=== PATIENT | female | born 1995 | race Caucasian/White ===

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

== ENCOUNTER 2017-02-22 18:43 | Emergency (ER) | payer BC ==
[2017-02-22 19:07] VITALS: BP 127/83
[2017-02-22] MEDS ORDERED: Ondansetron 4 MG/2 ML SDV IVPUSH ONE (19:20)
[2017-02-22] MEDS ORDERED: Sodium Chloride 0.9% 1,000 ML IV SCH (19:30)
--- NOTE | 2017-02-22 19:32 | EDM.PDOC ---
ED HPI GENERAL MEDICAL PROBLEM - General Chief Complaint: Abdominal Pain Stated Complaint: LOWER ABDOMINAL PAIN Time Seen by Provider: 02/22/17 19:08 Source of Information: Reports: Patient, RN Notes Reviewed History Limitations: Reports: No Limitations - History of Present Illness INITIAL COMMENTS - FREE TEXT/NARRATIVE: The patient states that she developed periumbilical abdominal pain this past Sunday morning, 02/20/2017. The pain then began to migrate to her right lower quadrant yesterday, and settled in her right lower quadrant today. It is stabbing and pressing in character. The pain is always present, but made worse with virtually any movement. She has had nausea, but no emesis. She has been constipated since 02/20/2017. No recent diarrhea. No recent fever. She reports urinary frequency, but no dysuria. No prior similar symptoms. The patient's LMP was 02/02/2017. Her last oral solid intake was at 17:00 this evening. Her last oral liquid intake was at 17:00 this evening. The patient does not have a PCP. Her Neurologist is at [facility]. Right Lower Abdomen Pain Score (Numeric/FACES): 7 - Related Data Allergies Allergy/AdvReac Type Severity Reaction Status Date / Time No Known Allergies Allergy Verified 11/15/16 21:40 Home Meds: Home Meds Riboflavin [Vitamin B-2] 25 mg PO DAILY 10/06/15 [History] levETIRAcetam [Keppra] 2,000 mg PO BID 10/06/15 [History] Magnesium 100 mg PO BID 11/15/16 [History] Past Medical History Neurological History: Reports: Migraines, Seizure - Past Surgical History HEENT Surgical History: Reports: Oral Surgery ([place] teeth extraction) Oncologic Surgical History: Reports: Other (See Below) (Right axillary lymph node biopsy - benign) Social & Family History - Tobacco Use Smoking Status *Q: Never Smoker Second Hand Smoke Exposure: No - Caffeine Use Caffeine Use: Reports: Coffee - Alcohol Use Alcohol Use History: Yes Alcohol Use Frequency: Socially - Recreational Drug Use Recreational Drug Use: No - Living Situation & Occupation Living situation: Reports: Single, with Family Occupation: Student ([employer]) ED ROS GENERAL - Review of Systems Review Of Systems: See Below Constitutional: Reports: No Symptoms HEENT: Reports: No Symptoms Respiratory: Reports: No Symptoms Cardiovascular: Reports: No Symptoms Endocrine: Reports: No Symptoms GI/Abdominal: Reports: No Symptoms : Reports: No Symptoms Musculoskeletal: Reports: No Symptoms Skin: Reports: No Symptoms Neurological: Reports: No Symptoms Psychiatric: Reports: No Symptoms Hematologic/Lymphatic: Reports: No Symptoms Immunologic: Reports: No Symptoms ED EXAM, GI/ABD - Physical Exam Exam: See Below Exam Limited By: No Limitations General Appearance: Alert, WD/WN, No Apparent Distress Eyes: Bilateral: Normal Appearance, EOMI Ears: Normal External Exam, Hearing Grossly Normal Nose: Normal Inspection, No Blood Throat/Mouth: Normal Inspection, Normal Lips, Normal Voice, No Airway Compromise Head: Atraumatic, Normocephalic Neck: Normal Inspection, Full Range of Motion Respiratory/Chest: No Respiratory Distress, Lungs Clear, Normal Breath Sounds, No Accessory Muscle Use Cardiovascular: Normal Peripheral Pulses, Regular Rate, Rhythm, No Gallop, No JVD, No Murmur, No Rub GI/Abdominal Exam: Soft, No Organomegaly, No Distention, No Abnormal Bruit, No Mass, Pelvis Stable, Tender (Right lower quadrant only. Rovsing sign positive. Obturator sign positive. Psoas sign positive. Heel drop sign positive.), Abnormal Bowel Sounds (rare). No: Rebound (Female) Exam: Deferred Rectal (Female) Exam: Deferred Back Exam: Normal Inspection, Full Range of Motion. No: CVA Tenderness (L), CVA Tenderness (R) Extremities: Normal Inspection, Normal Range of Motion, No Pedal Edema, Normal Capillary Refill Neurological: Alert, Oriented, Normal Cognition, No Motor/Sensory Deficits Psychiatric: Normal Affect Skin Exam: Warm, Dry, Intact, Normal Color, No Rash Course - Vital Signs Last Recorded V/S: Last Vital Signs Temp 36.2 C 02/22/17 19:05 Pulse 73 02/22/17 19:05 Resp 20 02/22/17 19:05 BP 127/83 02/22/17 19:05 Pulse Ox 100 02/22/17 19:05 - Orders/Labs/Meds Orders: Active Orders 24 hr Category Date Time Status Abdomen Pelvis w Cont [CT] Stat Exams 02/22/17 19:20 Taken Transvaginal Non OB [US] Stat Exams 02/22/17 21:21 Ordered Sodium Chloride 0.9% [Normal Saline] 1,000 ml Med 02/22/17 19:30 Active IV ASDIRECTED Sodium Chloride 0.9% [Saline Flush] Med 02/22/17 20:38 Active 10 ml FLUSH ONETIME PRN Medication Orders Sodium Chloride (Normal Saline) 1,000 mls @ 150 mls/hr IV ASDIRECTED COURTNEY Last Admin: 02/22/17 19:29 Dose: 150 mls/hr Sodium Chloride (Saline Flush) 10 ml FLUSH ONETIME PRN PRN Reason: IV FLUSH Last Admin: 02/22/17 20:53 Dose: 10 ml Labs: Laboratory Tests 02/22/17 02/22/17 02/22/17 Range/Units 19:18 19:18 20:14 WBC 9.58 (3.98-10.04) K/mm3 RBC 5.10 (3.98-5.22) M/mm3 Hgb 13.4 (11.2-15.7) gm/L Hct 41.1 (34.1-44.9) % MCV 80.6 (79.4-94.8) fl MCH 26.3 (25.6-32.2) pg MCHC 32.6 (32.2-35.5) g/dl RDW Std Deviation 38.1 (36.4-46.3) fL Plt Count 298 (182-369) K/mm3 MPV 9.2 L (9.4-12.3) fl Neutrophils % (Manual) 56 (40-60) % Band Neutrophils % 0 (0-10) % Lymphocytes % (Manual) 42 H (20-40) % Atypical Lymphs % 0 % Monocytes % (Manual) 1 L (2-10) % Eosinophils % (Manual) 1 (0.7-5.8) % Basophils % (Manual) 0 L (0.1-1.2) Platelet Estimate Adequate RBC Morph Comment Normal Sodium 138 (136-145) mEq/L Potassium 3.6 (3.5-5.1) mEq/L Chloride 104 (98-107) mEq/L Carbon Dioxide 26 (21-32) mEq/L Anion Gap 11.6 (5-15) BUN 8 (7-18) mg/dL Creatinine 0.8 (0.55-1.02) mg/dL Est Cr Clr Drug Dosing 106.03 mL/min Estimated GFR (MDRD) > 60 (>60) mL/min BUN/Creatinine Ratio 10.0 L (14-18) Glucose 93 (74-106) mg/dL Calcium 9.8 (8.5-10.1) mg/dL Total Bilirubin 0.2 (0.2-1.0) mg/dL AST 16 (15-37) U/L ALT 28 (14-59) U/L Alkaline Phosphatase 67 (46-116) U/L Total Protein 8.5 H (6.4-8.2) g/dl Albumin 4.5 (3.4-5.0) g/dl Globulin 4.0 gm/dL Albumin/Globulin Ratio 1.1 (1-2) Lipase 228 (73-393) U/L Urine Color (Yellow) Urine Appearance (Clear) Urine pH (5.0-8.0) Ur Specific [place] (1.005-1.030) Urine Protein (Negative) Urine Glucose (UA) (Negative) Urine Ketones (Negative) Urine Occult Blood (Negative) Urine Nitrite (Negative) Urine Bilirubin (Negative) Urine Urobilinogen (0.2-1.0) Ur Leukocyte Esterase (Negative) Urine RBC (0-5) /hpf Urine WBC (0-5) /hpf Ur Epithelial Cells (0-5) /hpf Urine Bacteria (FEW) /hpf Urine Mucus (FEW) /hpf Urine HCG, Qual Negative (NEGATIVE) 02/22/17 Range/Units 20:14 WBC (3.98-10.04) K/mm3 RBC (3.98-5.22) M/mm3 Hgb (11.2-15.7) gm/L Hct (34.1-44.9) % MCV (79.4-94.8) fl MCH (25.6-32.2) pg MCHC (32.2-35.5) g/dl RDW Std Deviation (36.4-46.3) fL Plt Count (182-369) K/mm3 MPV (9.4-12.3) fl Neutrophils % (Manual) (40-60) % Band Neutrophils % (0-10) % Lymphocytes % (Manual) (20-40) % Atypical Lymphs % % Monocytes % (Manual) (2-10) % Eosinophils % (Manual) (0.7-5.8) % Basophils % (Manual) (0.1-1.2) Platelet Estimate RBC Morph Comment Sodium (136-145) mEq/L Potassium (3.5-5.1) mEq/L Chloride (98-107) mEq/L Carbon Dioxide (21-32) mEq/L Anion Gap (5-15) BUN (7-18) mg/dL Creatinine (0.55-1.02) mg/dL Est Cr Clr Drug Dosing mL/min Estimated GFR (MDRD) (>60) mL/min BUN/Creatinine Ratio (14-18) Glucose (74-106) mg/dL Calcium (8.5-10.1) mg/dL Total Bilirubin (0.2-1.0) mg/dL AST (15-37) U/L ALT (14-59) U/L Alkaline Phosphatase (46-116) U/L Total Protein (6.4-8.2) g/dl Albumin (3.4-5.0) g/dl Globulin gm/dL Albumin/Globulin Ratio (1-2) Lipase (73-393) U/L Urine Color Yellow (Yellow) Urine Appearance Slt cloudy H (Clear) Urine pH 6.0 (5.0-8.0) Ur Specific [place] 1.020 (1.005-1.030) Urine Protein Negative (Negative) Urine Glucose (UA) Negative (Negative) Urine Ketones Negative (Negative) Urine Occult Blood Trace-intact H (Negative) Urine Nitrite Negative (Negative) Urine Bilirubin Negative (Negative) Urine Urobilinogen 0.2 (0.2-1.0) Ur Leukocyte Esterase Negative (Negative) Urine RBC 0-5 (0-5) /hpf Urine WBC 0-5 (0-5) /hpf Ur Epithelial Cells 0-5 (0-5) /hpf Urine Bacteria Few (FEW) /hpf Urine Mucus Few (FEW) /hpf Urine HCG, Qual (NEGATIVE) Meds: Medications Generic Name Dose Route Start Last Admin Trade Name Freq PRN Reason Stop Dose Admin Sodium Chloride 1,000 mls @ 150 mls/hr 02/22/17 19:30 02/22/17 19:29 Normal Saline IV 150 mls/hr ASDIRECTED COURTNEY Administration Sodium Chloride 10 ml 02/22/17 20:38 02/22/17 20:53 Saline Flush FLUSH 10 ml ONETIME PRN Administration IV FLUSH Discontinued Medications Generic Name Dose Route Start Last Admin Trade Name Freq PROliva Reason Stop Dose Admin Iopamidol 150 ml 02/22/17 20:38 02/22/17 20:53 Isovue-300 (61%) IVPUSH 02/22/17 20:39 110 ml ONETIME ONE Administration Ondansetron HCl 4 mg 02/22/17 19:20 02/22/17 19:30 Zofran IVPUSH 02/22/17 19:21 4 mg ONETIME ONE Administration - Re-Assessments/Exams Free Text/Narrative Re-Assessment/Exam: 02/22/17 19:33 The patient declined an offer for pain medication, however, accepted an offer for anti-nausea medicine. I asked her to notify the nurse if she changes her mind about the pain medicine. 02/22/17 21:22 CT of the abdomen and pelvis with oral and IV contrast is read by [facility] as: No sign of acute intra-abdominal pathology. Normal appendix. No significant change. The report of the CT scan indicates "The uterus and ovaries are within normal limits. There are no adnexal masses." This significantly reduces the likelihood that the patient's pain is due to an ovarian cyst. Ovarian torsion is now of primary concern. I have ordered a transvaginal ultrasound to evaluate. 02/22/17 21:27 The above was discussed with the patient. She is still declining an offer for pain medication. 02/22/17 22:11 Notified by the fill technician that the patient is adamantly refusing the transvaginal ultrasound, telling him that even placing a tampon causes her to have a seizure. The patient was returned to her room. I went and talked to her, explaining that I believe that her pain is real, and that I am concerned that there is significant pathology. Based on her history, physical examination , and negative CT scan, I am concerned that she has a torsioned right ovary. I explained why the CT scan is not able to diagnose an ovarian torsion. I explained that if she does in fact have a torsioned ovary, that time is of the essence, if she is to save the ovary, and that a transvaginal ultrasound is the only available way to make the diagnosis. I explained that if the ovary dies, she will lose 50% of her fertility. The patient initially stated that she wanted to go home and discuss this with her mother, however, she is now going to call her mother and discuss it before rendering a decision. 02/22/17 22:28 The patient has decided to not proceed with the transvaginal ultrasound. She prefers to follow-up with her Alteration Tailor Apprentice. I will have her sign out AMA. Departure - Departure Time of Disposition: 22:30 Disposition: Home, Self-Care 01 Condition: Fair Clinical Impression: Acute pelvic pain, female - Discharge Information Referrals: PCP,None [Primary Care Provider] - Forms: ED Department Discharge Additional Instructions: You were seen in the emergency room for lower right abdominal pain, nausea, constipation, and frequent urination. Workup in the ER included blood work, a urinalysis, a urine test, and a CT scan of your abdomen and pelvis. Your entire workup was unremarkable, and does not explain the cause of your pain. Based on your history, physical examination, and the negative tests above, we are very concerned that you have right ovarian torsion. Time is of the essence to diagnose an ovarian torsion, because if it is not diagnosed quickly enough, the ovary will likely , and if it dies, you would lose 50% of your fertility. A transvaginal ultrasound is necessary to diagnose an ovarian torsion. This was offered to you, but declined. You have elected to go home and follow-up with your Alteration Tailor Apprentice. Because we are concerned that you have a genuine medical emergency, you have been asked to sign out AGAINST MEDICAL ADVICE. If you change your mind, please do not hesitate to return to the ER for additional evaluation. - My Orders Last 24 Hours: My Active Orders 02/22/17 19:20 Abdomen Pelvis w Cont [CT] Stat 02/22/17 19:30 Sodium Chloride 0.9% [Normal Saline] 1,000 ml IV ASDIRECTED 02/22/17 20:38 Sodium Chloride 0.9% [Saline Flush] 10 ml FLUSH ONETIME PRN 02/22/17 21:21 Transvaginal Non OB [US] Stat - Assessment/Plan Last 24 Hours: My Active Orders 02/22/17 19:20 Abdomen Pelvis w Cont [CT] Stat 02/22/17 19:30 Sodium Chloride 0.9% [Normal Saline] 1,000 ml IV ASDIRECTED 02/22/17 20:38 Sodium Chloride 0.9% [Saline Flush] 10 ml FLUSH ONETIME PRN 02/22/17 21:21 Transvaginal Non OB [US] Stat
[2017-02-22] MEDS ORDERED: Sodium Chloride 0.9% 10 ML Syringe FLUSH PRN (20:38)
[2017-02-22] MEDS ORDERED: Iopamidol 612 MG/ML 150 ML Bottle IVPUSH ONE (20:38)
--- NOTE | 2017-02-23 07:40 | CT ---
CT abdomen and pelvis Technique: Multiple axial sections were obtained from the top the liver inferiorly through the pubic symphysis. Intravenous and oral contrast has been given. Delayed images were obtained through the bladder. Comparison: Previous CT abdomen and pelvis exam of 03/08/11. Findings: Visualized lung bases are clear. Liver shows no focal abnormality. Spleen appears within normal limits. Several accessory splenic nodules noted medial to the spleen which are incidental. Adrenal glands show no nodule. Pancreas is within normal limits. Gallbladder contains no calcified gallstones. Kidneys show symmetric contrast enhancement without hydronephrosis or mass. Aorta shows no aneurysmal dilatation. No retroperitoneal adenopathy or mesenteric abnormalities are seen. No pelvic mass or adenopathy is seen. Appendix is identified which appears within normal limits. No inflammatory change or free fluid is seen. Delayed images show contrast within the distal ureters and within the bladder. Bone window settings were reviewed which show scoliosis within the spine. Small limbus type vertebra is incidentally noted within the anterior and superior endplate of L4. Impression: 1. Incidental findings. Nothing acute is appreciated on CT study of the abdomen and pelvis. Diagnostic code #2 I agree with preliminary report issued by [facility] ([facility] preliminary report dictated on 02/22/17, 10:17 PM Central Time)
== END 2017-02-22 22:45 | disposition home or self-care (01) ==
LOC: JD.ED 18:43 → SUPCPDRO 18:43 → JD.ED 22:45
DX: R10.2 Pelvic and perineal pain (principal); Z79.899 Other long term (current) drug therapy
CPT/HCPCS: 36415; 74177; 80053; 81001; 81025; 83690; 85025; 96361; 96374; 99284; J2405; J7040; J7050; Q9967

== ENCOUNTER 2022-04-12 17:00 | Day surgery (SDC) | payer BC ==
[2022-04-12] MEDS ORDERED: Lactated Ringers 1,000 ML IV ONE (17:26)
[2022-04-12] MEDS ORDERED: Ketorolac 30 MG/ML SDV IVPUSH ONE (17:27)
[2022-04-12] MEDS ORDERED: fentaNYL 100 MCG/2 ML SDV IVPUSH ONE ×2 (17:27→18:51)
[2022-04-12] MEDS ORDERED: Ondansetron 4 MG/2 ML SDV IVPUSH ONE (17:56)
[2022-04-12] MEDS ORDERED: Doxycycline Monohydrate 100 MG Cap PO ONE (20:02)
[2022-04-12] MEDS ORDERED: Lactated Ringers 1,000 ML IV SCH (20:15)
[2022-04-12] MEDS ORDERED: fentaNYL 100 MCG/2 ML SDV IVPUSH PRN (20:35)
[2022-04-12] MEDS ORDERED: HYDROmorphone 0.5 MG/0.5 ML Syringe IVPUSH PRN (20:35)
[2022-04-12] MEDS ORDERED: Ondansetron 4 MG/2 ML SDV IVPUSH PRN (20:35)
[2022-04-12] MEDS ORDERED: Methylergonovine 0.2 MG/1 ML Amp ONE (20:36)
[2022-04-12] MEDS ORDERED: Sugammadex Sodium 200 MG/2 ML VIAL ONE (20:36)
[2022-04-12] MEDS ORDERED: Acetaminophen/oxyCODONE 325-5 MG Tab PO PRN (21:13)
[2022-04-12 21:54] VITALS: BP 117/71; PULSE 85
== END 2022-04-12 22:00 | disposition home or self-care (01) ==
LOC: JD.ED 17:00 → JD.SDS 20:03
PROVIDERS: ATTEND Obstetrics & Gynecology
DX: O03.4 Incomplete spontaneous abortion without complication (principal); O02.9 Abnormal product of conception, unspecified; G43.909 Migraine, unspecified, not intractable, without status migrainosus; F17.290 Nicotine dependence, other tobacco product, uncomplicated; F41.9 Anxiety disorder, unspecified; F32.A Depression, unspecified; Z79.899 Other long term (current) drug therapy; Z98.890 Other specified postprocedural states
CPT/HCPCS: 36415; 59812; 76856; 80053; 83735; 85025; 86850; 86900; 86901; 96374; 96375; 96376; 99285; A9270; J1885; J2210; J2405; J3010; J3490; J7120; 01965; 99284